=== PATIENT | male | born 1960 | race Caucasian/White ===

== ENCOUNTER 2018-04-07 12:47 | Inpatient (IN) ==
[2018-04-07] MEDS ORDERED: Azithromycin 500 MG in D5% in Water 250 ML IVPB ONE (12:52)
[2018-04-07] MEDS ORDERED: cefTRIAXone 2,000 MG in Water for inj. (sterile) 20 ML 10 ML IVP ONE (12:52)
[2018-04-07] MEDS ORDERED: Ipratropium/Albuterol Neb 3 ML IH ONE (12:52)
[2018-04-07] MEDS ORDERED: methylPREDNISolone 125 MG/2 ML VIAL IVP ONE (12:52)
[2018-04-07] MEDS ORDERED: 0.9 % Sodium Chloride 1,000 ML IVC ONE (12:52)
--- NOTE | 2018-04-07 12:54 | Emergency Department Note ---
Disposition Clinical Impression: Acute exacerbation of chronic obstructive airways disease Pneumonia Qualifiers: Pneumonia type: due to unspecified organism Laterality: bilateral Lung location : lower lobe of lung Qualified Code(s): J18.1 - Lobar pneumonia, unspecified organism Disposition: Admitted As Inpatient Condition: Fair Referrals: NONE,PCP [Non-Partnered Physician] - Forms: ED Satisfaction Letter Time of Disposition: 13:50 SOB HPI - General Chief Complaint: ED Shortness of Breath/Dyspnea Stated Complaint: SHORTNESS OF BREATH Time Seen by Provider: 04/07/18 12:52 Source: patient Mode of arrival: private vehicle Limitations: physical limitation Nursing Notes Reviewed: Yes Vital Signs Reviewed: Yes - History of Present Illness Patient relates he has had increased cough with shortness of breath over a week. He states he is coughing up [place], green to yellow phlegm. He went to work on Wednesday and upon getting home he has been in bed other to take care of activities of daily living. He is increased shortness of breath and dyspnea on exertion. He states he used to be on some Advair is currently not on oxygen or any other aerosol or inhaler. He is continued to be a smoker. He has a history of COPD. Reports fevers, chills and sweats with this. He has had chest pain with a cough for a deep breath. He denies radiating pain to his jaw , back or arms. He states he was exposed to some others at work with upper respiratory infection. She denies any lower extremity swelling, immobilization or injury. Denies abdominal pain, nausea or vomiting. Denies diarrhea. He states he is on no current medications at all and has no allergies. He arrives with initial saturation of 82% upon arriving in triage and this went to 87% at rest. He is saturating 92% on 2 L. Pt Subjective Complaint: shortness of breath, cough, pain with inspiration (And cough) Onset (ago): week(s) (1) Context: recent illness Severity: moderate, severe Consistency/Duration: gradually worsening Improves with: rest Worsens with: exertion, coughing Known history of: COPD ("Probably") Associated symptoms: Reports: chest pain (With cough), pain with inspiration, fever, cough, wheezing, sputum production, diaphoresis. Denies: orthopnea, lower extremity pain, polyuria, polydipsia, parasthesias, palpitations, hemoptysis, nausea/vomiting, syncope, abdominal pain, rash Treatment prior to arrival: none Cough present: Yes Cough Description: Voluntary, Productive, Hacking, Wheezy Cough Frequency: Intermittent Sputum production: Yes Sputum Amount: Moderate Sputum Color: Yellow, Green, Brown - Related Data Home oxygen amount: none Allergies Allergy/AdvReac Type Severity Reaction Status Date / Time No Known Allergies Allergy Verified 06/20/16 16:26 All systems ED: reviewed and negative except as stated. Past Medical History - Past Medical History Attestation: Yes The following information was validated with the patient. Source: patient, nursing notes reviewed Medical history: Reports: arthritis, COPD, other (Chronic low back pain) Surgical history: Reports: orthopedic, other (Left knee, left ankle, jaw, sinus and left arm), sinus surgery Psychiatric history: Reports: no psych history - Social History Smoking Status: Current every day smoker Smokeless Tobacco Status: No Alcohol use: Reports: none Drug use: Reports: none Physical Exam - General Limitations: physical limitation General appearance: alert, in no apparent distress - Head Head exam: atraumatic, normocephalic, normal inspection - Eye Eye exam: Present: normal appearance, PERRL, EOMI. Absent: scleral icterus, conjunctival injection - ENT ENT exam: normal exam, normal oropharynx, mucous membranes moist - Neck Neck exam: Present: normal inspection, full ROM, trachea midline - Chest Chest inspection: Present: normal inspection, symmetric chest wall rise. Absent : tenderness - Respiratory Respiratory exam: Present: respiratory distress, wheezes, prolonged expiratory phase, other (Rhonchorous breath sounds and rhonchorous cough.) - Cardiovascular Cardiovascular exam: Present: regular rate, normal rhythm, normal heart sounds. Absent: tachycardia - Abdominal Exam Abdominal exam: Present: soft, Non-Tender, normal bowel sounds. Absent: tenderness, distention, guarding, rebound, rigidity - Extremities Exam Extremities exam: Present: normal inspection, full ROM, normal capillary refill. Absent: tenderness, pedal edema, calf tenderness - Expanded Lower Extremity Exam Neurovascular/Tendon exam: Present: normal capillary refill. Absent: motor deficit, sensory deficit, tendon deficit Gait: observed and normal - Neurological Exam Neurological exam: Present: alert, oriented X3, CN II-XII intact, normal gait - Psychiatric Psychiatric exam: Present: normal affect, anxious - Skin Skin exam: Present: warm, dry, intact, pallor. Absent: cyanosis, diaphoresis Course Course Narrative: With return of all lab, EKG and imaging, call has been placed to Dr. Abernathy for continued inpatient observation. Patient is resting more comfortably with a heart rate of 90, saturation 99% on 2 L and a respiratory rate of 18. His current blood pressures 107/78. His white count is significant elevated and his lactic acid is negative. He still has some expiratory wheezing and a rhonchorous cough but has good air exchange. He has a regular rhythm without tachycardia. Has good capillary refill, peripheral pulses and normal skin exam with good color and turgor. Vital Signs Temperature 99.0 F 04/07/18 12:47 Pulse Rate 79 04/07/18 12:47 Respiratory Rate 16 04/07/18 12:47 Blood Pressure 131/86 04/07/18 12:47 O2 Sat by Pulse Oximetry 83 04/07/18 12:47 Temperature 99.0 F 04/07/18 12:47 Pulse Rate 92 04/07/18 14:23 Respiratory Rate 16 04/07/18 14:23 Blood Pressure 110/66 04/07/18 14:23 O2 Sat by Pulse Oximetry 97 04/07/18 14:23 Oxygen Delivery Oxygen Delivery Nasal Cannula Shortness of Breath/Dyspnea - Differential Diagnosis Likely: acute exacerbation of chronic obstructive airways disease, pneumonia - Medical Records Medical records reviewed: Yes I reviewed the patient's medical records. - Lab Data Lab results reviewed: Yes I reviewed the patient's lab results. Result diagrams: 04/07/18 13:10 04/07/18 13:10 Lab Results 04/07/18 04/07/18 04/07/18 Range/Units 13:10 13:10 13:10 WBC 25.6 H (4.3-11.1) K/mcL RBC 3.94 L (4.19-5.50) M/mcL Hgb 11.5 L (12.9-16.9) g/dL Hct 34.2 L (37.5-50.1) % MCV 86.8 (83.0-100.0) fL MCH 29.2 (28.0-33.3) pg MCHC 33.6 (31.6-35.5) g/dL RDW 15.9 H (11.5-14.5) % Plt Count 406 H (140-400) K/mcL MPV 9.2 L (9.4-12.4) fL PT (9.4-12.1) Seconds INR APTT (26.0-36.0) Seconds Sodium 134 L (136-145) mEq/L Potassium 4.6 (3.5-5.1) mEq/L Chloride 97 L (98-107) mEq/L Carbon Dioxide 30 H (23-29) mEq/L BUN 10 (6-20) mg/dL Creatinine 0.61 L (0.70-1.30) mg/dL Est GFR ( Amer) > 60 (> 60) Est GFR (Non-Af Amer) > 60 (> 60) BUN/Creatinine Ratio 16 (6-26) Glucose 99 (70-105) mg/dL Calculated Osmolality 277 L (280-300) Lactic Acid 1.1 (0.5-2.2) mmol/L Calcium 8.7 (8.6-10.3) mg/dL Total Bilirubin 0.3 (0.3-1.0) mg/dL Direct Bilirubin 0.1 (0.0-0.2) mg/dL Indirect Bilirubin 0.2 (0.0-1.2) mg/dL AST 20 (13-39) Units/L ALT 12 (7-52) Units/L Alkaline Phosphatase 152 H (34-104) Units/L Troponin I 0.04 H* (< 0.04) ng/mL B-Natriuretic Peptide (Less than 100) pg/mL Serum Total Protein 7.3 (6.4-8.9) g/dL Albumin 2.7 L (3.5-5.7) g/dL Globulin 4.6 H (2.4-3.5) g/dL Albumin/Globulin Ratio 0.6 L (1.1-2.2) 04/07/18 04/07/18 Range/Units 13:10 13:10 WBC (4.3-11.1) K/mcL RBC (4.19-5.50) M/mcL Hgb (12.9-16.9) g/dL Hct (37.5-50.1) % MCV (83.0-100.0) fL MCH (28.0-33.3) pg MCHC (31.6-35.5) g/dL RDW (11.5-14.5) % Plt Count (140-400) K/mcL MPV (9.4-12.4) fL PT 12.1 (9.4-12.1) Seconds INR 1.1 APTT 32.6 (26.0-36.0) Seconds Sodium (136-145) mEq/L Potassium (3.5-5.1) mEq/L Chloride (98-107) mEq/L Carbon Dioxide (23-29) mEq/L BUN (6-20) mg/dL Creatinine (0.70-1.30) mg/dL Est GFR ( Amer) (> 60) Est GFR (Non-Af Amer) (> 60) BUN/Creatinine Ratio (6-26) Glucose (70-105) mg/dL Calculated Osmolality (280-300) Lactic Acid (0.5-2.2) mmol/L Calcium (8.6-10.3) mg/dL Total Bilirubin (0.3-1.0) mg/dL Direct Bilirubin (0.0-0.2) mg/dL Indirect Bilirubin (0.0-1.2) mg/dL AST (13-39) Units/L ALT (7-52) Units/L Alkaline Phosphatase (34-104) Units/L Troponin I (< 0.04) ng/mL B-Natriuretic Peptide 67 (Less than 100) pg/mL Serum Total Protein (6.4-8.9) g/dL Albumin (3.5-5.7) g/dL Globulin (2.4-3.5) g/dL Albumin/Globulin Ratio (1.1-2.2) - Radiology Data Radiology results reviewed: Yes I reviewed the patient's radiology results. Single view chest x-rays performed. This demonstrates hyperexpansion consistent with emphysema and COPD. Patient has a dense pleural base mass in the left costophrenic angle consistent with lung cancer or infiltrate. Does answer effusion, pneumothorax or cardiomegaly. This is on my interpretation. Impressions Chest X-Ray 04/07/18 12:52 IMPRESSION: COPD with bibasilar interstitial infiltrates, with consolidative changes seen in the left lung base consistent with pneumonia. There may be a small left pleural effusion. D/ / Ronald Larry MD / Ronald Larry MD Interpreting Provider: Ronald Larry MD - EKG Data EKG attestation: Yes I reviewed and interpreted this EKG. EKG shows normal: Reports: sinus rhythm, axis, intervals, QRS complexes, ST-T waves Rate: Reports: normal (72) Interpretation: Reports: no acute changes, normal EKG
[2018-04-07 13:27] LABS: Hematocrit 34.2 % (37.5-50.1); Hemoglobin 11.5 g/dL (12.9-16.9); Mean Corpuscular HGB Conc 33.6 g/dL (31.6-35.5); Mean Corpuscular Hemoglobin 29.2 pg (28.0-33.3); Mean Corpuscular Volume 86.8 fL (83.0-100.0); Mean Platelet Volume 9.2 fL (9.4-12.4); Platelet Count 406 K/mcL (140-400); Red Blood Count 3.94 M/mcL (4.19-5.50); Red Cell Distribution Width 15.9 % (11.5-14.5)
[2018-04-07 13:34] LABS: INR 1.1; Prothrombin Time 12.1 Seconds (9.4-12.1)
[2018-04-07 13:37] LABS: Activated Partial Thrombo Time 32.6 Seconds (26.0-36.0)
[2018-04-07 13:43] LABS: Alanine Aminotransferase 12 Units/L (7-52); Albumin 2.7 g/dL (3.5-5.7); Albumin/Globulin Ratio 0.6 (1.1-2.2); Alkaline Phosphatase 152 Units/L (34-104); Aspartate Amino Transferase 20 Units/L (13-39); BUN/Creatinine Ratio 16 (6-26); Bilirubin,Direct 0.1 mg/dL (0.0-0.2); Bilirubin,Indirect 0.2 mg/dL (0.0-1.2); Bilirubin,Total 0.3 mg/dL (0.3-1.0); Blood Urea Nitrogen 10 mg/dL (6-20); Calcium 8.7 mg/dL (8.6-10.3); Carbon Dioxide 30 mEq/L (23-29); Chloride 97 mEq/L (98-107); Globulin 4.6 g/dL (2.4-3.5); Glucose 99 mg/dL (70-105); Osmolality,Calculated 277 (280-300); Potassium 4.6 mEq/L (3.5-5.1); Sodium 134 mEq/L (136-145); Total Protein 7.3 g/dL (6.4-8.9); eGFR For Non-African Americans > 60 (> 60)
[2018-04-07 14:17] LABS: Troponin I 0.04 ng/mL (< 0.04)
[2018-04-07 14:25] LABS: Lymphocytes # 1.5 K/mcL (0.6-4.6)
[2018-04-07] MEDS ORDERED: *HR* HYDROcodone/Acet 5/325 mg TABLET PO ONE ×2 (14:48→15:08)
[2018-04-07] MEDS ORDERED: Ketorolac 30 MG/ML VIAL IVP ONE ×2 (14:48→15:08)
[2018-04-07] MEDS ORDERED: Naloxone 0.4 MG/ML INJ IVP PRN (15:08)
[2018-04-07] MEDS: *HR* HYDROcodone/Acet 5/325 mg TABLET PO PRN ×2 (15:48→23:32)
[2018-04-07] MEDS: predniSONE 20 MG TABLET PO SCH (15:48)
[2018-04-07] MEDS: 0.9 % Sodium Chloride 1,000 ML IVC SCH ×2 (15:50→23:30)
[2018-04-07] MEDS ORDERED: Ipratropium/Albuterol Neb 3 ML IH SCH (16:00)
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
[2018-04-07] MEDS: Ibuprofen 600 MG TABLET PO SCH ×2 (17:17→21:00)
[2018-04-07] MEDS: Nicotine 21 MG PATCH.TD24 TD SCH (17:47)
[2018-04-07] MEDS: Lactobacillus 1 EACH CAP.SPRINK PO SCH (20:52)
[2018-04-07] MEDS: Albuterol 2.5 MG/3 ML NEBULIZER IH PRN (23:50)
[2018-04-08] MEDS: *HR* HYDROcodone/Acet 5/325 mg TABLET PO PRN ×3 (05:20→17:47)
[2018-04-08 05:31] LABS: Hematocrit 30.7 % (37.5-50.1); Hemoglobin 10.4 g/dL (12.9-16.9); Mean Corpuscular HGB Conc 33.9 g/dL (31.6-35.5); Mean Corpuscular Hemoglobin 29.3 pg (28.0-33.3); Mean Corpuscular Volume 86.5 fL (83.0-100.0); Mean Platelet Volume 9.5 fL (9.4-12.4); Platelet Count 424 K/mcL (140-400); Red Blood Count 3.55 M/mcL (4.19-5.50); Red Cell Distribution Width 15.7 % (11.5-14.5)
[2018-04-08] MEDS: Albuterol 2.5 MG/3 ML NEBULIZER IH PRN ×5 (05:32→21:09)
[2018-04-08 05:58] LABS: BUN/Creatinine Ratio 26 (6-26); Blood Urea Nitrogen 15 mg/dL (6-20); Carbon Dioxide 26 mEq/L (23-29); Chloride 102 mEq/L (98-107); Glucose 124 mg/dL (70-105); Osmolality,Calculated 282 (280-300); Potassium 4.6 mEq/L (3.5-5.1); Sodium 135 mEq/L (136-145); eGFR For Non-African Americans > 60 (> 60)
[2018-04-08 06:08] LABS: Thyroid Stimulating Hormone 0.706 mcIU/mL (0.340-5.600)
[2018-04-08] MEDS: Azithromycin 500 MG in D5% in Water 250 ML IVPB SCH (08:22)
[2018-04-08] MEDS: cefTRIAXone 2,000 MG in 0.9 % Sodium Chloride Mini Bag 100 ML IVPB SCH (08:22)
[2018-04-08] MEDS: Nicotine 21 MG PATCH.TD24 TD SCH (08:22)
[2018-04-08] MEDS: Ibuprofen 600 MG TABLET PO SCH ×3 (08:23→21:53)
[2018-04-08] MEDS: predniSONE 20 MG TABLET PO SCH (08:23)
[2018-04-08] MEDS: Lactobacillus 1 EACH CAP.SPRINK PO SCH ×2 (08:23→21:52)
[2018-04-08 09:08] LABS: % Iron Saturation 13 % (20-55); Iron 29 mcg/dL (65-175); Transferrin 155 mg/dL (203-362)
[2018-04-08 09:11] LABS: Ferritin 68 ng/mL (20-250)
[2018-04-08 09:17] LABS: Folate 6.3 ng/mL (3.0-16.0)
--- NOTE | 2018-04-08 10:29 | Internal Med Progress Note ---
Date of Encounter: 04/08/18 Time of Encounter: 10:20 - Assessment and plan (1) Pneumonia Current Visit: Yes Status: Acute Assessment and plan: April 08. WBC minimally changed. Continue Rocephin and Zithromax with lactobacillus and add IV clindamycin. Qualifiers: Pneumonia type: due to unspecified organism Laterality: bilateral Lung location: lower lobe of lung Qualified Code(s): J18.1 - Lobar pneumonia, unspecified organism (2) Acute exacerbation of chronic obstructive airways disease Current Visit: Yes Status: Acute Assessment and plan: April 08. Continue present regimen. (3) Anemia Current Visit: Yes Status: Acute Assessment and plan: April 08. Anemia testing showed iron 29, transferrin saturation 13%, transferrin 155, ferritin 68, B12 563, and folate 6.3. Start ferrous sulfate with vitamin C in a.m. Qualifiers: Anemia type: unspecified type Qualified Code(s): D64.9 - Anemia, unspecified (4) Rib pain Current Visit: Yes Status: Acute Assessment and plan: Continue scheduled Tylenol. Add scheduled Ultram and continue [place] prn (5) Insomnia Current Visit: Yes Status: Acute Assessment and plan: Schedule trazodone. Qualifiers: Insomnia type: unspecified Qualified Code(s): G47.00 - Insomnia, unspecified - Subjective Interval history: April 08. He has no new complaints. He states he still coughing with yellow sputum productive occasionally. He still has soreness in his chest and abdomen from the frequent coughing. - Constitutional Vitals: Temp Pulse Resp BP Pulse Ox 97.8 F 84 14 105/73 94 04/08/18 06:54 04/08/18 06:54 04/08/18 06:54 04/08/18 06:54 04/08/18 06:54 Exam: He is lying in bed and appears overall comfortable. He did not cough during my visit. His affect is cheerful. He does not appear significantly dyspneic at rest. I reviewed his medications, lab results, and chest CT. Internal Medicine: Result - Labs CBC & Chem 7: 04/08/18 04:47 04/08/18 04:47 Labs: Short CBC 04/08/18 Range/Units 04:47 WBC 26.1 H (4.3-11.1) K/mcL Hgb 10.4 L (12.9-16.9) g/dL Hct 30.7 L (37.5-50.1) % Plt Count 424 H (140-400) K/mcL BMP 04/08/18 04:47 Sodium 135 L Potassium 4.6 Chloride 102 Carbon Dioxide 26 BUN 15 Creatinine 0.57 L Glucose 124 H Calcium 8.0 L Cardiac Enzymes 04/07/18 Range/Units 16:58 Troponin I 0.04 H* (< 0.04) ng/mL - ABG Interpretation ABG results: PT/INR, D-dimer PT 12.1 Seconds (9.4-12.1) 04/07/18 13:10 - Impressions Impressions Chest CT 04/07/18 17:26 IMPRESSION: 1. Consolidative infiltrates seen in the left lower lobe consistent with pneumonia. 2. Diffuse bronchiectatic changes worse in the lower lobes. 3. Ill-defined nodules/infiltrate some of which have cavitary components in the right upper lobe as described. Diffuse nodularity seen in the right lower lobe. It is felt that these changes are likely related to infection rather than neoplasm. No evidence of pleural disease. 4. Multiple compression injuries worse at T7 with severe compression of unknown acuity. No evidence of retropulsion. D/ / 04/07/2018 18:12:06 Migdalia Bourgeois MD / magan Interpreting Provider: Migdalia Bourgeois MD Consult Discharge Plan - Plan Referrals: Ronald Maldonado MD [Primary Care Provider] - 1 week
[2018-04-08] MEDS: Clindamycin 600 MG/50 ML 600 MG/50 ML IV.SOLN IVPB SCH ×2 (11:11→19:35)
[2018-04-08] MEDS: Benzonatate 100 MG CAPSULE PO SCH ×3 (11:20→21:53)
[2018-04-08] MEDS: traMADol 50 MG TABLET PO SCH ×2 (11:20→17:46)
[2018-04-08] MEDS: predniSONE 10 MG TABLET PO SCH ×2 (13:02→17:47)
[2018-04-08] MEDS: traZODone 50 MG TABLET PO SCH (21:53)
[2018-04-09] MEDS: Albuterol 2.5 MG/3 ML NEBULIZER IH PRN ×6 (00:17→22:44)
[2018-04-09] MEDS: traMADol 50 MG TABLET PO SCH ×4 (00:17→17:48)
[2018-04-09] MEDS: Clindamycin 600 MG/50 ML 600 MG/50 ML IV.SOLN IVPB SCH ×3 (03:12→19:37)
[2018-04-09 04:41] LABS: Basophils % 0.1 %; Hematocrit 27.4 % (37.5-50.1); Hemoglobin 9.2 g/dL (12.9-16.9); Immature Granulocytes % 2.2 % (0-4); Lymphocytes # 1.2 K/mcL (0.6-4.6); Lymphocytes % 6.8 %; Mean Corpuscular HGB Conc 33.6 g/dL (31.6-35.5); Mean Corpuscular Hemoglobin 29.1 pg (28.0-33.3); Mean Corpuscular Volume 86.7 fL (83.0-100.0); Mean Platelet Volume 8.8 fL (9.4-12.4); Monocytes # 0.7 K/mcL (0.0-1.3); Monocytes % 3.9 %; Neutrophils # 14.7 K/mcL (1.6-8.9); Platelet Count 435 K/mcL (140-400); Red Blood Count 3.16 M/mcL (4.19-5.50); Red Cell Distribution Width 15.8 % (11.5-14.5)
[2018-04-09 05:01] LABS: BUN/Creatinine Ratio 27 (6-26); Blood Urea Nitrogen 14 mg/dL (6-20); Calcium 7.8 mg/dL (8.6-10.3); Carbon Dioxide 27 mEq/L (23-29); Chloride 104 mEq/L (98-107); Glucose 105 mg/dL (70-105); Osmolality,Calculated 283 (280-300); Potassium 4.2 mEq/L (3.5-5.1); Sodium 136 mEq/L (136-145); eGFR For Non-African Americans > 60 (> 60)
[2018-04-09] MEDS: Ascorbic Acid 500 MG TABLET PO SCH (06:34)
[2018-04-09] MEDS: Ibuprofen 600 MG TABLET PO SCH ×3 (08:23→20:10)
[2018-04-09] MEDS: Lactobacillus 1 EACH CAP.SPRINK PO SCH ×2 (08:23→20:10)
[2018-04-09] MEDS: Benzonatate 100 MG CAPSULE PO SCH ×2 (08:23→14:43)
[2018-04-09] MEDS: *HR* HYDROcodone/Acet 5/325 mg TABLET PO PRN ×3 (08:24→23:03)
[2018-04-09] MEDS: cefTRIAXone 2,000 MG in 0.9 % Sodium Chloride Mini Bag 100 ML IVPB SCH (08:24)
[2018-04-09] MEDS: predniSONE 10 MG TABLET PO SCH ×2 (08:24→17:48)
[2018-04-09] MEDS: Nicotine 21 MG PATCH.TD24 TD SCH (08:28)
[2018-04-09] MEDS: Azithromycin 500 MG in D5% in Water 250 ML IVPB SCH (09:15)
--- NOTE | 2018-04-09 15:19 | Internal Med Progress Note ---
Date of Encounter: 04/09/18 Time of Encounter: 15:10 - Assessment and plan (1) Pneumonia Current Visit: Yes Status: Acute Assessment and plan: April 08. WBC minimally changed. Continue Rocephin and Zithromax with lactobacillus and add IV clindamycin. April 09. WBC improved to 16.9 K. Continue Rocephin, Zithromax, clindamycin, and lactobacillus. Discontinue Tessalon. Qualifiers: Pneumonia type: due to unspecified organism Laterality: bilateral Lung location: lower lobe of lung Qualified Code(s): J18.1 - Lobar pneumonia, unspecified organism (2) Acute exacerbation of chronic obstructive airways disease Current Visit: Yes Status: Acute Assessment and plan: April 08. Continue present regimen. (3) Anemia Current Visit: Yes Status: Acute Assessment and plan: April 08. Anemia testing showed iron 29, transferrin saturation 13%, transferrin 155, ferritin 68, B12 563, and folate 6.3. Start ferrous sulfate with vitamin C in a.m. April 09. Hemogram decreased to 9.2. Continue ferrous sulfate with vitamin C and recheck labs in a.m. Qualifiers: Anemia type: unspecified type Qualified Code(s): D64.9 - Anemia, unspecified (4) Rib pain Current Visit: Yes Status: Acute Assessment and plan: April 08. Continue scheduled Tylenol. Add scheduled Ultram and continue [place] prn (5) Insomnia Current Visit: Yes Status: Acute Assessment and plan: April 08. Schedule trazodone. Qualifiers: Insomnia type: unspecified Qualified Code(s): G47.00 - Insomnia, unspecified - Subjective Interval history: April 08. He has no new complaints. He states he still coughing with yellow sputum productive occasionally. He still has soreness in his chest and abdomen from the frequent coughing. April 09. He has no new complaints and feels slightly improved. He expressed concern he should not have his cough suppressed if he is producing significant mucus. - Constitutional Vitals: Temp Pulse Resp BP Pulse Ox 97.7 F 83 18 104/64 93 04/09/18 07:27 04/09/18 07:27 04/09/18 14:00 04/09/18 07:27 04/09/18 14:00 Exam: He is resting comfortably in bed and appears in no acute distress. His affect is bright and cheerful. He did not cough during the visit. I reviewed his medications and lab results. Internal Medicine: Result - Labs CBC & Chem 7: 04/09/18 04:35 04/09/18 04:35 Labs: Short CBC 04/09/18 Range/Units 04:35 WBC 16.9 H (4.3-11.1) K/mcL Hgb 9.2 L (12.9-16.9) g/dL Hct 27.4 L (37.5-50.1) % Plt Count 435 H (140-400) K/mcL Neutrophils # 14.7 H (1.6-8.9) K/mcL BMP 04/09/18 04:35 Sodium 136 Potassium 4.2 Chloride 104 Carbon Dioxide 27 BUN 14 Creatinine 0.52 L Glucose 105 Calcium 7.8 L - ABG Interpretation ABG results: PT/INR, D-dimer PT 12.1 Seconds (9.4-12.1) 04/07/18 13:10 Consult Discharge Plan - Plan Referrals: Ronald Maldonado MD [Primary Care Provider] - 1 week
[2018-04-09] MEDS: traZODone 50 MG TABLET PO SCH (20:10)
[2018-04-10] MEDS: traMADol 50 MG TABLET PO SCH ×4 (00:40→17:40)
[2018-04-10] MEDS: Albuterol 2.5 MG/3 ML NEBULIZER IH PRN ×5 (00:52→20:54)
[2018-04-10] MEDS: Clindamycin 600 MG/50 ML 600 MG/50 ML IV.SOLN IVPB SCH ×3 (02:40→20:16)
[2018-04-10 06:09] LABS: Basophils % 0.1 %; Hematocrit 28.4 % (37.5-50.1); Hemoglobin 9.5 g/dL (12.9-16.9); Immature Granulocytes % 1.3 % (0-4); Lymphocytes # 1.2 K/mcL (0.6-4.6); Mean Corpuscular HGB Conc 33.5 g/dL (31.6-35.5); Mean Corpuscular Hemoglobin 29.2 pg (28.0-33.3); Mean Corpuscular Volume 87.4 fL (83.0-100.0); Mean Platelet Volume 9.1 fL (9.4-12.4); Monocytes # 0.6 K/mcL (0.0-1.3); Monocytes % 4.4 %; Neutrophils # 11.5 K/mcL (1.6-8.9); Platelet Count 529 K/mcL (140-400); Red Blood Count 3.25 M/mcL (4.19-5.50); Red Cell Distribution Width 15.9 % (11.5-14.5); Segmented Neutrophils % 85.2 %
[2018-04-10] MEDS: Ascorbic Acid 500 MG TABLET PO SCH (06:31)
[2018-04-10] MEDS: predniSONE 10 MG TABLET PO SCH ×2 (08:18→17:40)
[2018-04-10] MEDS: Ibuprofen 600 MG TABLET PO SCH ×3 (08:18→20:14)
[2018-04-10] MEDS: Lactobacillus 1 EACH CAP.SPRINK PO SCH ×2 (08:18→20:15)
[2018-04-10] MEDS: Azithromycin 500 MG in D5% in Water 250 ML IVPB SCH (08:19)
[2018-04-10] MEDS: Nicotine 21 MG PATCH.TD24 TD SCH (08:19)
[2018-04-10] MEDS: *HR* HYDROcodone/Acet 5/325 mg TABLET PO PRN ×3 (08:31→21:57)
--- NOTE | 2018-04-10 09:50 | Internal Med Progress Note ---
Date of Encounter: 04/10/18 Time of Encounter: 09:40 - Assessment and plan (1) Pneumonia Current Visit: Yes Status: Acute Assessment and plan: April 08. WBC minimally changed. Continue Rocephin and Zithromax with lactobacillus and add IV clindamycin. April 09. WBC improved to 16.9 K. Continue Rocephin, Zithromax, clindamycin, and lactobacillus. Discontinue Tessalon. April 10. WBC further improved to 13.5 with slight decrease in left shift on differential. Continue present regimen. Anticipate discharge home tomorrow with oral antibiotics if stable. Qualifiers: Pneumonia type: due to unspecified organism Laterality: bilateral Lung location: lower lobe of lung Qualified Code(s): J18.1 - Lobar pneumonia, unspecified organism (2) Acute exacerbation of chronic obstructive airways disease Current Visit: Yes Status: Acute Assessment and plan: April 08. Continue present regimen. (3) Anemia Current Visit: Yes Status: Acute Assessment and plan: April 08. Anemia testing showed iron 29, transferrin saturation 13%, transferrin 155, ferritin 68, B12 563, and folate 6.3. Start ferrous sulfate with vitamin C in a.m. April 09. Hemoglobin decreased to 9.2. Continue ferrous sulfate with vitamin C and recheck labs in a.m. April 10. Hemoglobin slightly improved to 9.5. Continue ferrous sulfate with vitamin C. Qualifiers: Anemia type: unspecified type Qualified Code(s): D64.9 - Anemia, unspecified (4) Rib pain Current Visit: Yes Status: Acute Assessment and plan: April 08. Continue scheduled Tylenol. Add scheduled Ultram and continue [place] prn April 10. He did not mention rib pain today. Continue present regimen. (5) Insomnia Current Visit: Yes Status: Acute Assessment and plan: April 08. Schedule trazodone. Qualifiers: Insomnia type: unspecified Qualified Code(s): G47.00 - Insomnia, unspecified - Subjective Interval history: April 08. He has no new complaints. He states he still coughing with yellow sputum productive occasionally. He still has soreness in his chest and abdomen from the frequent coughing. April 09. He has no new complaints and feels slightly improved. He expressed concern he should not have his cough suppressed if he is producing significant mucus. April 10. He has no new complaints. - Constitutional Vitals: Temp Pulse Resp BP Pulse Ox 98.1 F 86 16 104/74 93 04/10/18 02:09 04/10/18 02:09 04/10/18 02:09 04/10/18 02:09 04/10/18 04:06 Exam: He is lying in bed resting comfortably. He did not cough during the visit. His affect is bright and cheerful. I reviewed his medications and discussed pertinent lab results with him. Internal Medicine: Result - Labs CBC & Chem 7: 04/10/18 05:35 04/09/18 04:35 Labs: Short CBC 04/10/18 Range/Units 05:35 WBC 13.5 H (4.3-11.1) K/mcL Hgb 9.5 L (12.9-16.9) g/dL Hct 28.4 L (37.5-50.1) % Plt Count 529 H (140-400) K/mcL Neutrophils # 11.5 H (1.6-8.9) K/mcL - ABG Interpretation ABG results: PT/INR, D-dimer PT 12.1 Seconds (9.4-12.1) 04/07/18 13:10 Consult Discharge Plan - Plan Referrals: Ronald Maldonado MD [Primary Care Provider] - 1 week
[2018-04-10] MEDS: cefTRIAXone 2,000 MG in 0.9 % Sodium Chloride Mini Bag 100 ML IVPB SCH (09:58)
[2018-04-10] MEDS: traZODone 50 MG TABLET PO SCH (20:14)
[2018-04-11] MEDS: traMADol 50 MG TABLET PO SCH ×5 (00:51→23:45)
[2018-04-11] MEDS: Albuterol 2.5 MG/3 ML NEBULIZER IH PRN ×6 (03:15→21:56)
[2018-04-11] MEDS: Clindamycin 600 MG/50 ML 600 MG/50 ML IV.SOLN IVPB SCH ×3 (03:30→19:57)
[2018-04-11] MEDS: *HR* HYDROcodone/Acet 5/325 mg TABLET PO PRN ×3 (04:04→16:34)
[2018-04-11 05:18] LABS: Basophils % 0.2 %; Eosinophils % 0.1 %; Hematocrit 30.6 % (37.5-50.1); Hemoglobin 10.2 g/dL (12.9-16.9); Immature Granulocytes % 1.5 % (0-4); Lymphocytes # 1.3 K/mcL (0.6-4.6); Lymphocytes % 9.6 %; Mean Corpuscular HGB Conc 33.3 g/dL (31.6-35.5); Mean Corpuscular Hemoglobin 29.1 pg (28.0-33.3); Mean Corpuscular Volume 87.2 fL (83.0-100.0); Mean Platelet Volume 8.9 fL (9.4-12.4); Monocytes # 0.8 K/mcL (0.0-1.3); Monocytes % 5.7 %; Neutrophils # 10.9 K/mcL (1.6-8.9); Platelet Count 602 K/mcL (140-400); Red Blood Count 3.51 M/mcL (4.19-5.50); Red Cell Distribution Width 15.9 % (11.5-14.5); Segmented Neutrophils % 82.9 %
[2018-04-11] MEDS: Ascorbic Acid 500 MG TABLET PO SCH (06:19)
[2018-04-11] MEDS: Ibuprofen 600 MG TABLET PO SCH ×3 (09:36→19:56)
[2018-04-11] MEDS: predniSONE 10 MG TABLET PO SCH ×2 (09:36→16:34)
[2018-04-11] MEDS: Lactobacillus 1 EACH CAP.SPRINK PO SCH ×2 (09:36→19:56)
[2018-04-11] MEDS: cefTRIAXone 2,000 MG in 0.9 % Sodium Chloride Mini Bag 100 ML IVPB SCH (09:37)
[2018-04-11] MEDS: Azithromycin 500 MG in D5% in Water 250 ML IVPB SCH (09:37)
[2018-04-11] MEDS: Nicotine 21 MG PATCH.TD24 TD SCH (09:46)
--- NOTE | 2018-04-11 14:41 | Internal Med Progress Note ---
Date of Encounter: 04/11/18 Time of Encounter: 14:35 - Assessment and plan (1) Pneumonia Current Visit: Yes Status: Acute Assessment and plan: April 08. WBC minimally changed. Continue Rocephin and Zithromax with lactobacillus and add IV clindamycin. April 09. WBC improved to 16.9 K. Continue Rocephin, Zithromax, clindamycin, and lactobacillus. Discontinue Tessalon. April 10. WBC further improved to 13.5 with slight decrease in left shift on differential. Continue present regimen. Anticipate discharge home tomorrow with oral antibiotics if stable. April 11. WBC minimally improved at 13.1 K with persistent left shift. Continue IV antibiotics today and anticipate discharge home tomorrow Qualifiers: Pneumonia type: due to unspecified organism Laterality: bilateral Lung location: lower lobe of lung Qualified Code(s): J18.1 - Lobar pneumonia, unspecified organism (2) Acute exacerbation of chronic obstructive airways disease Current Visit: Yes Status: Acute Assessment and plan: April 08. Continue present regimen. April 11. Recheck 6 minute walk in a.m. (3) Anemia Current Visit: Yes Status: Acute Assessment and plan: April 08. Anemia testing showed iron 29, transferrin saturation 13%, transferrin 155, ferritin 68, B12 563, and folate 6.3. Start ferrous sulfate with vitamin C in a.m. April 09. Hemoglobin decreased to 9.2. Continue ferrous sulfate with vitamin C and recheck labs in a.m. April 10. Hemoglobin slightly improved to 9.5. Continue ferrous sulfate with vitamin C. April 11. Hemoglobin improved to 10.2. Qualifiers: Anemia type: unspecified type Qualified Code(s): D64.9 - Anemia, unspecified (4) Rib pain Current Visit: Yes Status: Acute Assessment and plan: April 08. Continue scheduled Tylenol. Add scheduled Ultram and continue [place] prn April 10. He did not mention rib pain today. Continue present regimen. (5) Insomnia Current Visit: Yes Status: Acute Assessment and plan: April 08. Schedule trazodone. Qualifiers: Insomnia type: unspecified Qualified Code(s): G47.00 - Insomnia, unspecified - Subjective Interval history: April 08. He has no new complaints. He states he still coughing with yellow sputum productive occasionally. He still has soreness in his chest and abdomen from the frequent coughing. April 09. He has no new complaints and feels slightly improved. He expressed concern he should not have his cough suppressed if he is producing significant mucus. April 10. He has no new complaints. April 11. He has no new complaints. - Constitutional Vitals: Temp Pulse Resp BP Pulse Ox 97.8 F 81 17 123/71 95 04/11/18 14:00 04/11/18 14:00 04/11/18 14:00 04/11/18 14:00 04/11/18 14:00 Exam: He is resting comfortably in bed wearing oxygen. His affect is cheerful. I reviewed his medications and lab results. I discussed the results of the 6 minute walk done today showing saturation decreasing to 85% within 1 minute of initiating walking. Internal Medicine: Result - Labs CBC & Chem 7: 04/11/18 04:43 04/09/18 04:35 Labs: Short CBC 04/11/18 Range/Units 04:43 WBC 13.1 H (4.3-11.1) K/mcL Hgb 10.2 L (12.9-16.9) g/dL Hct 30.6 L (37.5-50.1) % Plt Count 602 H (140-400) K/mcL Neutrophils # 10.9 H (1.6-8.9) K/mcL - ABG Interpretation ABG results: PT/INR, D-dimer PT 12.1 Seconds (9.4-12.1) 04/07/18 13:10 Consult Discharge Plan - Plan Referrals: Ronald Maldonado MD [Primary Care Provider] - 1 week
--- NOTE | 2018-04-11 15:44 | Electrocardiograph Report ---
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
[2018-04-11] MEDS: traZODone 50 MG TABLET PO SCH (19:57)
[2018-04-12] MEDS: *HR* HYDROcodone/Acet 5/325 mg TABLET PO PRN ×3 (01:41→14:24)
[2018-04-12] MEDS: Albuterol 2.5 MG/3 ML NEBULIZER IH PRN ×6 (01:55→13:53)
[2018-04-12] MEDS: Clindamycin 600 MG/50 ML 600 MG/50 ML IV.SOLN IVPB SCH ×3 (04:33→12:02)
[2018-04-12] MEDS: Ascorbic Acid 500 MG TABLET PO SCH (06:05)
[2018-04-12] MEDS: traMADol 50 MG TABLET PO SCH ×2 (06:06→12:02)
[2018-04-12 06:49] LABS: Basophils % 0.2 %; Eosinophils % 0.2 %; Hematocrit 31.8 % (37.5-50.1); Hemoglobin 10.6 g/dL (12.9-16.9); Lymphocytes # 2.1 K/mcL (0.6-4.6); Lymphocytes % 16.7 %; Mean Corpuscular HGB Conc 33.3 g/dL (31.6-35.5); Mean Corpuscular Volume 86.9 fL (83.0-100.0); Mean Platelet Volume 9.2 fL (9.4-12.4); Monocytes # 0.8 K/mcL (0.0-1.3); Platelet Count 738 K/mcL (140-400); Red Blood Count 3.66 M/mcL (4.19-5.50); Red Cell Distribution Width 16.2 % (11.5-14.5); Segmented Neutrophils % 75.9 %
[2018-04-12 07:04] VITALS: BP 105/70
[2018-04-12 07:11] LABS: Neutrophils # 9.6 K/mcL (1.6-8.9)
[2018-04-12] MEDS: cefTRIAXone 2,000 MG in 0.9 % Sodium Chloride Mini Bag 100 ML IVPB SCH (07:56)
[2018-04-12] MEDS: Ibuprofen 600 MG TABLET PO SCH ×2 (07:57→14:23)
[2018-04-12] MEDS: predniSONE 10 MG TABLET PO SCH (07:57)
[2018-04-12] MEDS: Lactobacillus 1 EACH CAP.SPRINK PO SCH (07:57)
[2018-04-12] MEDS: Nicotine 21 MG PATCH.TD24 TD SCH (07:58)
[2018-04-12] MEDS: Azithromycin 500 MG in D5% in Water 250 ML IVPB SCH (07:58)
--- NOTE | 2018-04-12 10:45 | Discharge Summary ---
Date of Encounter: 04/12/18 Time of Encounter: 10:25 - Discharge Diagnosis (1) Pneumonia Priority: Primary Status: Acute Qualifiers: Pneumonia type: due to unspecified organism Laterality: bilateral Lung location: lower lobe of lung Qualified Code(s): J18.1 - Lobar pneumonia, unspecified organism (2) Acute exacerbation of chronic obstructive airways disease Priority: Secondary Status: Acute (3) Anemia Priority: Secondary Status: Acute Qualifiers: Anemia type: unspecified type Qualified Code(s): D64.9 - Anemia, unspecified (4) Rib pain Priority: Secondary Status: Acute (5) Insomnia Priority: Secondary Status: Acute Qualifiers: Insomnia type: unspecified Qualified Code(s): G47.00 - Insomnia, unspecified Hospital course: Mr. Hartman is a 57 year old male who came to emergency room stating he had onset of dyspnea and cough approximately one week ago. The cough was minimally productive of white phlegm. He denies hemoptysis. He had occasional sensation of fevers and chills. He had a single episode of vomiting and diarrhea. He stated he was too weak to get out of bed for the past 2 days so decided to come to emergency room. He was evaluated and was felt to have bibasal pneumonia. He was admitted to [facility] for ongoing care needs. Initial orders were written by the emergency room physician. I saw him on April 07 and performed a history and physical. He was started empirically on Rocephin and Zithromax. Chest CT was ordered to further evaluate. There were consolidative infiltrates in the left lower lobe consistent with pneumonia. He had diffuse bronchiectatic changes worse in the lower lobes. He had ill- defined nodule/infiltrate with cavitary components in the right upper lobe and diffuse nodularity in the right lower lobe. Radiologist felt the changes were likely due to infection rather than neoplasm. He had multiple compression fracture injuries with the worst at T7 with severe compression of unknown acuity. The WBC deanna slightly to 26.1 on April 08 and IV clindamycin was added. He had progressive decline of WBC down to 12.7 by day of discharge with resolution of left shift. He will continue with antibiotic and probiotic for 5 additional days at discharge. I strongly encouraged him to become a nonsmoker. Room air oximetry will be done on 6 minute walk prior to discharge. He will receive a 3 day supply of tramadol for abdominal/chest wall pain from coughing. Anemia testing showed iron 29, transferrin saturation 13%, transferrin 155, ferritin 68, B12 563, and folate 6.3. He will continue ferrous sulfate and vitamin C that was started in the hospital. Hemoglobin had improved to 10.6 by day of discharge from 9.2 on 04/09/2018. He will follow with his PCP Dr. Maldonado within 1 week. He may return to work . - Time Spent with Patient Total time spent providing and/or coordinating discharge services: - Discharge Medications Prescriptions: Cefuroxime PO [Ceftin] 500 mg PO Q12HR #10 tablet Ascorbic Acid [Vitamin C] 500 mg PO DAILY@0630 #30 tablet Clindamycin HCl 300 mg PO Q6H #20 capsule Ferrous Sulfate 325 mg PO DAILY@0630 #30 tablet Lactobacillus [Culturelle] 1 each PO BID #10 cap.sprink Tramadol HCl [Ultram] 50 mg PO QID PRN 3 Days #12 tab PRN Reason: Pain Home Medications: Ascorbic Acid [Vitamin C] 500 mg PO DAILY@0630 #30 tablet 04/12/18 [Rx] Cefuroxime PO [Ceftin] 500 mg PO Q12HR #10 tablet 04/12/18 [Rx] Clindamycin HCl 300 mg PO Q6H #20 capsule 04/12/18 [Rx] Ferrous Sulfate 325 mg PO DAILY@0630 #30 tablet 04/12/18 [Rx] Lactobacillus [Culturelle] 1 each PO BID #10 cap.sprink 04/12/18 [Rx] Tramadol HCl [Ultram] 50 mg PO QID PRN 3 Days #12 tab 04/12/18 [Rx] Allergies/Adverse Reactions: 3 Allergy/AdvReac Type Severity Reaction Status Date / Time No Known Allergies Allergy Verified 06/20/16 16:26 Date of admission: 04/08/18 14:53 Primary care physician: Ronald Maldonado MD - Constitutional Vitals: Temp Pulse Resp BP Pulse Ox 98.5 F 103 16 105/70 94 04/12/18 07:02 04/12/18 07:02 04/12/18 07:02 04/12/18 07:02 04/12/18 10:02 - Patient Status Disposition: Home, Self-Care Condition: Fair - Discharge Instructions Follow Up With: Ronald Maldonado MD [Primary Care Provider] - 1 week - Diet and Activity Activity: resume usual activities as tolerated Diet: advance to your usual diet
== END 2018-04-12 15:19 | disposition home or self-care (01) | DRG 194 ==
LOC: EMEROOPIK 12:47 → INPPIK 12:47
PROVIDERS: ADMIT Internal Medicine; ATTEND Internal Medicine

== ENCOUNTER 2021-12-08 12:31 | Inpatient (IN) ==
[2021-12-08] MEDS ORDERED: cefTRIAXone 2,000 MG in 0.9 % Sodium Chloride 10 ML IVP ONE (12:45)
[2021-12-08] MEDS ORDERED: Ipratropium/Albuterol Neb 3 ML IH ONE (12:45)
[2021-12-08] MEDS ORDERED: Azithromycin 500 MG in 0.9 % Sodium Chloride 250 ML IVPB ONE (12:45)
[2021-12-08] MEDS ORDERED: methylPREDNISolone 125 MG/2 ML VIAL IVP ONE (12:45)
[2021-12-08] MEDS ORDERED: 0.9 % Sodium Chloride 500 ML IVC ONE (12:46)
[2021-12-08] MEDS ORDERED: 0.9 % Sodium Chloride 1,000 ML IVC SCH (13:00)
[2021-12-08 13:08] LABS: Basophils % 0.2 %; Hematocrit 41.4 % (37.5-50.1); Hemoglobin 13.2 g/dL (12.9-16.9); Immature Granulocytes % 1.1 % (0-4); Lymphocytes % 4.8 %; Mean Corpuscular HGB Conc 31.9 g/dL (31.6-35.5); Mean Corpuscular Hemoglobin 27.6 pg (28.0-33.3); Mean Corpuscular Volume 86.6 fL (83.0-100.0); Mean Platelet Volume 9.2 fL (9.4-12.4); Monocytes % 3.2 %; Platelet Count 537 K/mcL (140-400); Red Blood Count 4.78 M/mcL (4.19-5.50); Red Cell Distribution Width 14.8 % (11.5-14.5); Segmented Neutrophils % 90.7 %; White Blood Count 20.2 K/mcL (4.3-11.1)
[2021-12-08 13:09] LABS: Monocytes # 0.7 K/mcL (0.0-1.3); Neutrophils # 18.3 K/mcL (1.6-8.9)
[2021-12-08 13:24] LABS: ABG Base Excess 3 mEq/L (-2 to 3); ABG HCO3 29 mEq/L (21-27); ABG Oxygen Saturation 94 % (95-98); ABG PCO2 47 mmHg (35-45); ABG PO2 72 mmHg (85-104); ABG TCO2 30 mEq/L (20-26)
[2021-12-08 13:32] LABS: Alanine Aminotransferase 8 Units/L (7-52); Albumin 3.5 g/dL (3.5-5.7); Albumin/Globulin Ratio 0.9 (1.1-2.2); Alkaline Phosphatase 115 Units/L (34-104); Aspartate Amino Transferase 16 Units/L (13-39); BUN/Creatinine Ratio 12 (6-26); Bilirubin,Direct 0.1 mg/dL (0.0-0.2); Bilirubin,Indirect 0.3 mg/dL (0.0-1.0); Bilirubin,Total 0.4 mg/dL (0.3-1.0); Blood Urea Nitrogen 8 mg/dL (8-23); Calcium 9.3 mg/dL (8.6-10.3); Carbon Dioxide 29 mEq/L (23-29); Chloride 88 mEq/L (98-107); Glucose 112 mg/dL (70-105); Osmolality,Calculated 265 (280-300); Sodium 128 mEq/L (136-145); Total Protein 7.5 g/dL (6.4-8.9); Troponin I < 0.03 ng/mL (< 0.04); eGFR For African Americans > 60 (> 60); eGFR For Non-African Americans > 60 (> 60)
[2021-12-08] MEDS ORDERED: Iopamidol - 370 500 ML MLS IVP ONE (13:42)
[2021-12-08] MEDS ORDERED: Acetaminophen 325 MG TABLET PO PRN (14:39)
[2021-12-08] MEDS ORDERED: Ondansetron 4 MG/2 ML VIAL IVP PRN (14:39)
[2021-12-08] MEDS ORDERED: Melatonin 3 MG TABLET PO PRN (14:39)
[2021-12-08] MEDS ORDERED: Naloxone 0.4 MG/ML INJ IVP PRN (14:39)
[2021-12-08] MEDS ORDERED: Nitroglycerin 0.4 MG TAB.SUBL SL PRN (14:45)
[2021-12-08] MEDS ORDERED: Perflutren Lipid Microsphere 1.3 ML in 0.9 % Sodium Chloride 8.7 ML IVP PRN (14:50)
[2021-12-08] MEDS: *HR* HYDROcodone/Acet 10/325 mg TABLET PO PRN ×2 (15:00→21:20)
[2021-12-08] MEDS: Nicotine 21 MG PATCH.TD24 TD SCH (15:00)
[2021-12-08] MEDS: Ipratropium/Albuterol Neb 3 ML IH SCH ×2 (15:22→20:11)
[2021-12-08] MEDS: Nystatin SUSP 5 ML UD.LIQ PO SCH ×2 (18:06→21:21)
[2021-12-08] MEDS: MethylPREDNISolone 40 MG/ML VIAL IVP SCH (18:06)
[2021-12-08] MEDS: Budesonide/Formoterol 160/4.5 1 PUFF INH IH SCH (20:25)
[2021-12-08 21:49] LABS: Adenovirus Not Detected (Not Detect); Bordetella Pertussis Not Detected (Not Detect); Chlamydophila pneumoniae Not Detected (Not Detect); Coronavirus 229E Not Detected (Not Detect); Coronavirus HKU1 Not Detected (Not Detect); Coronavirus NL63 Not Detected (Not Detect); Coronavirus OC43 Not Detected (Not Detect); Human Metapneumovirus Not Detected (Not Detect); Human Rhinovirus/Enterovirus Not Detected (Not Detect); Influenza A Subtype 2009 H1 Not Detected (Not Detect); Influenza B Not Detected (Not Detect); Mycoplasma pneumoniae Not Detected (Not Detect); Parainfluenza Virus 1 Not Detected (Not Detect); Parainfluenza Virus 2 Not Detected (Not Detect); Parainfluenza Virus 3 Not Detected (Not Detect); Parainfluenza Virus 4 Not Detected (Not Detect); Respiratory Syncytial Virus Not Detected (Not Detect); SARS-CoV-2 Not Detected (Not Detect)
[2021-12-09 00:20] LABS: Hematocrit 36.4 % (37.5-50.1); Hemoglobin 11.8 g/dL (12.9-16.9); Mean Corpuscular HGB Conc 32.4 g/dL (31.6-35.5); Mean Corpuscular Volume 86.3 fL (83.0-100.0); Platelet Count 508 K/mcL (140-400); Red Blood Count 4.22 M/mcL (4.19-5.50); Red Cell Distribution Width 14.9 % (11.5-14.5); White Blood Count 13.4 K/mcL (4.3-11.1)
[2021-12-09 00:32] LABS: BUN/Creatinine Ratio 19 (6-26); Blood Urea Nitrogen 13 mg/dL (8-23); Calcium 8.7 mg/dL (8.6-10.3); Carbon Dioxide 32 mEq/L (23-29); Chloride 92 mEq/L (98-107); Chol/HDL Ratio 3.6 (0-4.9); Cholesterol 100 mg/dL (< 200); Glucose 143 mg/dL (70-105); HDL Cholesterol 28 mg/dL (40-59); LDL Cholesterol,Calculated 60 mg/dL (< 100); Osmolality,Calculated 273 (280-300); Potassium 4.5 mEq/L (3.5-5.1); Sodium 130 mEq/L (136-145); Triglycerides 62 mg/dL (< 150); eGFR For African Americans > 60 (> 60); eGFR For Non-African Americans > 60 (> 60)
[2021-12-09] MEDS: MethylPREDNISolone 40 MG/ML VIAL IVP SCH ×4 (00:53→16:38)
[2021-12-09] MEDS: Ipratropium/Albuterol Neb 3 ML IH SCH ×6 (04:05→21:41)
[2021-12-09] MEDS: *HR* Enoxaparin 40 MG/0.4 ML SYRINGE SQ SCH (05:27)
[2021-12-09] MEDS: *HR* HYDROcodone/Acet 10/325 mg TABLET PO PRN ×3 (05:39→21:46)
[2021-12-09] MEDS: BuPROPion XL (24 HR) 150 MG TABLET PO SCH (08:57)
[2021-12-09] MEDS: Nicotine 21 MG PATCH.TD24 TD SCH (08:57)
[2021-12-09] MEDS: Azithromycin 250 MG TABLET PO SCH (08:57)
[2021-12-09] MEDS: cefTRIAXone 1,000 MG in 0.9 % Sodium Chloride 10 ML IVP SCH (08:57)
[2021-12-09] MEDS: Nystatin SUSP 5 ML UD.LIQ PO SCH ×4 (08:57→21:46)
[2021-12-09] MEDS: Aspirin Enteric Coated 81 MG Tablet PO SCH (08:57)
[2021-12-09] MEDS: Budesonide/Formoterol 160/4.5 1 PUFF INH IH SCH ×2 (09:34→21:40)
[2021-12-09] MEDS: Furosemide 20 MG/2 ML VIAL IVP SCH (16:39)
[2021-12-09] MEDS ORDERED: Furosemide 20 MG/2 ML VIAL IVP SCH (21:00)
[2021-12-10] MEDS: MethylPREDNISolone 40 MG/ML VIAL IVP SCH ×3 (00:09→18:07)
[2021-12-10] MEDS: Ipratropium/Albuterol Neb 3 ML IH SCH ×6 (00:55→20:23)
[2021-12-10] MEDS: *HR* HYDROcodone/Acet 10/325 mg TABLET PO PRN ×3 (04:59→18:03)
[2021-12-10] MEDS: *HR* Enoxaparin 40 MG/0.4 ML SYRINGE SQ SCH (04:59)
[2021-12-10 06:48] LABS: Hematocrit 35.2 % (37.5-50.1); Hemoglobin 11.4 g/dL (12.9-16.9); Mean Corpuscular HGB Conc 32.4 g/dL (31.6-35.5); Mean Corpuscular Hemoglobin 28.4 pg (28.0-33.3); Mean Corpuscular Volume 87.8 fL (83.0-100.0); Platelet Count 561 K/mcL (140-400); Red Blood Count 4.01 M/mcL (4.19-5.50); Red Cell Distribution Width 15.1 % (11.5-14.5); White Blood Count 20.4 K/mcL (4.3-11.1)
[2021-12-10 07:09] LABS: BUN/Creatinine Ratio 32 (6-26); Blood Urea Nitrogen 21 mg/dL (8-23); Calcium 8.7 mg/dL (8.6-10.3); Carbon Dioxide 36 mEq/L (23-29); Chloride 94 mEq/L (98-107); Glucose 136 mg/dL (70-105); Osmolality,Calculated 287 (280-300); Potassium 4.3 mEq/L (3.5-5.1); Sodium 136 mEq/L (136-145); eGFR For African Americans > 60 (> 60); eGFR For Non-African Americans > 60 (> 60)
[2021-12-10] MEDS: Azithromycin 250 MG TABLET PO SCH (08:55)
[2021-12-10] MEDS: Aspirin Enteric Coated 81 MG Tablet PO SCH (08:55)
[2021-12-10] MEDS: Nystatin SUSP 5 ML UD.LIQ PO SCH ×4 (08:55→20:19)
[2021-12-10] MEDS: Nicotine 21 MG PATCH.TD24 TD SCH (08:55)
[2021-12-10] MEDS: BuPROPion XL (24 HR) 150 MG TABLET PO SCH (08:55)
[2021-12-10] MEDS: Furosemide 20 MG/2 ML VIAL IVP SCH (08:56)
[2021-12-10] MEDS: cefTRIAXone 1,000 MG in 0.9 % Sodium Chloride 10 ML IVP SCH (08:57)
[2021-12-10] MEDS: Budesonide/Formoterol 160/4.5 1 PUFF INH IH SCH ×2 (09:06→20:23)
[2021-12-10] MEDS ORDERED: Bismuth Subsalicylate 120 ML ORAL SUSPENSION PO PRN (18:11)
[2021-12-11] MEDS: Ipratropium/Albuterol Neb 3 ML IH SCH ×6 (00:06→20:29)
[2021-12-11] MEDS: *HR* HYDROcodone/Acet 10/325 mg TABLET PO PRN ×4 (00:10→20:15)
[2021-12-11] MEDS: MethylPREDNISolone 40 MG/ML VIAL IVP SCH ×2 (04:56→17:29)
[2021-12-11] MEDS: *HR* Enoxaparin 40 MG/0.4 ML SYRINGE SQ SCH (04:57)
[2021-12-11] MEDS: Budesonide/Formoterol 160/4.5 1 PUFF INH IH SCH ×2 (07:14→20:29)
[2021-12-11] MEDS: Aspirin Enteric Coated 81 MG Tablet PO SCH (09:04)
[2021-12-11] MEDS: BuPROPion XL (24 HR) 150 MG TABLET PO SCH (09:05)
[2021-12-11] MEDS: Azithromycin 250 MG TABLET PO SCH (09:05)
[2021-12-11] MEDS: cefTRIAXone 1,000 MG in 0.9 % Sodium Chloride 10 ML IVP SCH (09:06)
[2021-12-11] MEDS: Furosemide 20 MG/2 ML VIAL IVP SCH (09:06)
[2021-12-11] MEDS: Nicotine 21 MG PATCH.TD24 TD SCH (09:08)
[2021-12-11] MEDS: Nystatin SUSP 5 ML UD.LIQ PO SCH ×4 (09:08→20:15)
[2021-12-11] MEDS: Sennosides/Docusate Sodium TABLET PO SCH (13:00)
[2021-12-12] MEDS: Ipratropium/Albuterol Neb 3 ML IH SCH ×6 (00:06→20:38)
[2021-12-12] MEDS: *HR* HYDROcodone/Acet 10/325 mg TABLET PO PRN ×4 (04:30→22:45)
[2021-12-12] MEDS: *HR* Enoxaparin 40 MG/0.4 ML SYRINGE SQ SCH (04:31)
[2021-12-12] MEDS: MethylPREDNISolone 40 MG/ML VIAL IVP SCH ×2 (04:31→17:08)
[2021-12-12 07:44] LABS: Hematocrit 34.9 % (37.5-50.1); Hemoglobin 10.9 g/dL (12.9-16.9); Mean Corpuscular HGB Conc 31.2 g/dL (31.6-35.5); Mean Corpuscular Hemoglobin 28.2 pg (28.0-33.3); Mean Corpuscular Volume 90.4 fL (83.0-100.0); Mean Platelet Volume 8.9 fL (9.4-12.4); Platelet Count 581 K/mcL (140-400); Red Blood Count 3.86 M/mcL (4.19-5.50); Red Cell Distribution Width 15.6 % (11.5-14.5); White Blood Count 10.8 K/mcL (4.3-11.1)
[2021-12-12] MEDS: Sennosides/Docusate Sodium TABLET PO SCH (07:48)
[2021-12-12] MEDS: Azithromycin 250 MG TABLET PO SCH (07:49)
[2021-12-12] MEDS: Nicotine 21 MG PATCH.TD24 TD SCH (07:50)
[2021-12-12] MEDS: Aspirin Enteric Coated 81 MG Tablet PO SCH (07:50)
[2021-12-12] MEDS: BuPROPion XL (24 HR) 150 MG TABLET PO SCH (07:50)
[2021-12-12] MEDS: cefTRIAXone 1,000 MG in 0.9 % Sodium Chloride 10 ML IVP SCH (07:50)
[2021-12-12] MEDS: Nystatin SUSP 5 ML UD.LIQ PO SCH ×4 (07:51→20:53)
[2021-12-12] MEDS: Budesonide/Formoterol 160/4.5 1 PUFF INH IH SCH ×2 (08:04→20:39)
[2021-12-12] MEDS: Furosemide 20 MG TABLET PO SCH ×2 (08:06→08:07)
[2021-12-12 08:10] LABS: BUN/Creatinine Ratio 33 (6-26); Blood Urea Nitrogen 23 mg/dL (8-23); Calcium 8.7 mg/dL (8.6-10.3); Carbon Dioxide 43 mEq/L (23-29); Chloride 87 mEq/L (98-107); Glucose 100 mg/dL (70-105); Osmolality,Calculated 278 (280-300); Potassium 4.7 mEq/L (3.5-5.1); Sodium 132 mEq/L (136-145); eGFR For African Americans > 60 (> 60); eGFR For Non-African Americans > 60 (> 60)
[2021-12-13] MEDS: Ipratropium/Albuterol Neb 3 ML IH SCH ×6 (00:27→20:38)
[2021-12-13] MEDS: *HR* HYDROcodone/Acet 10/325 mg TABLET PO PRN ×3 (05:12→18:17)
[2021-12-13] MEDS: *HR* Enoxaparin 40 MG/0.4 ML SYRINGE SQ SCH (05:12)
[2021-12-13 06:32] LABS: Hematocrit 35.4 % (37.5-50.1); Hemoglobin 11.2 g/dL (12.9-16.9); Mean Corpuscular HGB Conc 31.6 g/dL (31.6-35.5); Mean Corpuscular Hemoglobin 28.1 pg (28.0-33.3); Mean Corpuscular Volume 88.7 fL (83.0-100.0); Mean Platelet Volume 8.8 fL (9.4-12.4); Platelet Count 602 K/mcL (140-400); Red Blood Count 3.99 M/mcL (4.19-5.50); Red Cell Distribution Width 15.2 % (11.5-14.5); White Blood Count 8.8 K/mcL (4.3-11.1)
[2021-12-13 06:53] LABS: BUN/Creatinine Ratio 32 (6-26); Blood Urea Nitrogen 22 mg/dL (8-23); Calcium 8.7 mg/dL (8.6-10.3); Carbon Dioxide 42 mEq/L (23-29); Chloride 85 mEq/L (98-107); Glucose 79 mg/dL (70-105); Osmolality,Calculated 270 (280-300); Potassium 4.5 mEq/L (3.5-5.1); Sodium 129 mEq/L (136-145); eGFR For African Americans > 60 (> 60); eGFR For Non-African Americans > 60 (> 60)
[2021-12-13] MEDS: cefTRIAXone 1,000 MG in 0.9 % Sodium Chloride 10 ML IVP SCH (08:12)
[2021-12-13] MEDS: Sennosides/Docusate Sodium TABLET PO SCH (08:13)
[2021-12-13] MEDS: predniSONE 20 MG TABLET PO SCH (08:13)
[2021-12-13] MEDS: Nystatin SUSP 5 ML UD.LIQ PO SCH ×4 (08:13→19:58)
[2021-12-13] MEDS: BuPROPion XL (24 HR) 150 MG TABLET PO SCH (08:14)
[2021-12-13] MEDS: acetaZOLAMIDE 250 MG TABLET PO SCH ×2 (08:14→19:58)
[2021-12-13] MEDS: Aspirin Enteric Coated 81 MG Tablet PO SCH (08:14)
[2021-12-13] MEDS: Nicotine 21 MG PATCH.TD24 TD SCH (08:14)
[2021-12-13] MEDS: Budesonide/Formoterol 160/4.5 1 PUFF INH IH SCH ×2 (08:54→20:38)
[2021-12-14] MEDS: Ipratropium/Albuterol Neb 3 ML IH SCH ×6 (00:30→20:01)
[2021-12-14] MEDS: *HR* HYDROcodone/Acet 10/325 mg TABLET PO PRN ×4 (00:37→19:55)
[2021-12-14] MEDS: *HR* Enoxaparin 40 MG/0.4 ML SYRINGE SQ SCH (05:35)
[2021-12-14] MEDS: cefTRIAXone 1,000 MG in 0.9 % Sodium Chloride 10 ML IVP SCH (07:32)
[2021-12-14] MEDS: Sennosides/Docusate Sodium TABLET PO SCH (07:33)
[2021-12-14] MEDS: predniSONE 20 MG TABLET PO SCH (07:33)
[2021-12-14] MEDS: Aspirin Enteric Coated 81 MG Tablet PO SCH (07:33)
[2021-12-14] MEDS: acetaZOLAMIDE 250 MG TABLET PO SCH ×2 (07:34→19:54)
[2021-12-14] MEDS: Nicotine 21 MG PATCH.TD24 TD SCH (07:34)
[2021-12-14] MEDS: BuPROPion XL (24 HR) 150 MG TABLET PO SCH (07:34)
[2021-12-14] MEDS: Nystatin SUSP 5 ML UD.LIQ PO SCH ×4 (07:34→19:54)
[2021-12-14 08:03] LABS: BUN/Creatinine Ratio 27 (6-26); Blood Urea Nitrogen 20 mg/dL (8-23); Calcium 8.6 mg/dL (8.6-10.3); Carbon Dioxide 32 mEq/L (23-29); Chloride 93 mEq/L (98-107); Glucose 88 mg/dL (70-105); Osmolality,Calculated 270 (280-300); Potassium 4.3 mEq/L (3.5-5.1); Sodium 129 mEq/L (136-145); eGFR For African Americans > 60 (> 60); eGFR For Non-African Americans > 60 (> 60)
[2021-12-14] MEDS: Budesonide/Formoterol 160/4.5 1 PUFF INH IH SCH ×2 (08:47→20:02)
[2021-12-15] MEDS: Ipratropium/Albuterol Neb 3 ML IH SCH ×7 (00:02→23:14)
[2021-12-15] MEDS: *HR* HYDROcodone/Acet 10/325 mg TABLET PO PRN ×4 (02:24→22:24)
[2021-12-15] MEDS: *HR* Enoxaparin 40 MG/0.4 ML SYRINGE SQ SCH (05:04)
[2021-12-15] MEDS: Aspirin Enteric Coated 81 MG Tablet PO SCH (08:23)
[2021-12-15] MEDS: Nicotine 21 MG PATCH.TD24 TD SCH (08:23)
[2021-12-15] MEDS: BuPROPion XL (24 HR) 150 MG TABLET PO SCH (08:23)
[2021-12-15] MEDS: acetaZOLAMIDE 250 MG TABLET PO SCH ×2 (08:24→20:40)
[2021-12-15] MEDS: Sennosides/Docusate Sodium TABLET PO SCH (08:24)
[2021-12-15] MEDS: Nystatin SUSP 5 ML UD.LIQ PO SCH ×4 (08:24→20:40)
[2021-12-15] MEDS: predniSONE 20 MG TABLET PO SCH (08:24)
[2021-12-15] MEDS: Budesonide/Formoterol 160/4.5 1 PUFF INH IH SCH ×2 (08:51→23:14)
[2021-12-16] MEDS: Ipratropium/Albuterol Neb 3 ML IH SCH ×4 (03:34→15:11)
[2021-12-16] MEDS: *HR* HYDROcodone/Acet 10/325 mg TABLET PO PRN ×2 (04:53→10:59)
[2021-12-16] MEDS: *HR* Enoxaparin 40 MG/0.4 ML SYRINGE SQ SCH (04:54)
[2021-12-16 06:01] LABS: Basophils % 0.2 %; Eosinophils % 0.6 %; Hematocrit 33.2 % (37.5-50.1); Hemoglobin 10.6 g/dL (12.9-16.9); Immature Granulocytes % 0.6 % (0-4); Lymphocytes # 1.7 K/mcL (0.6-4.6); Lymphocytes % 26.8 %; Mean Corpuscular HGB Conc 31.9 g/dL (31.6-35.5); Mean Corpuscular Hemoglobin 27.8 pg (28.0-33.3); Mean Corpuscular Volume 87.1 fL (83.0-100.0); Mean Platelet Volume 8.3 fL (9.4-12.4); Monocytes # 0.5 K/mcL (0.0-1.3); Monocytes % 8.4 %; Neutrophils # 3.9 K/mcL (1.6-8.9); Platelet Count 481 K/mcL (140-400); Red Blood Count 3.81 M/mcL (4.19-5.50); Red Cell Distribution Width 15.7 % (11.5-14.5); Segmented Neutrophils % 63.4 %; White Blood Count 6.2 K/mcL (4.3-11.1)
[2021-12-16 06:22] LABS: BUN/Creatinine Ratio 30 (6-26); Blood Urea Nitrogen 22 mg/dL (8-23); Calcium 8.2 mg/dL (8.6-10.3); Carbon Dioxide 27 mEq/L (23-29); Chloride 98 mEq/L (98-107); Glucose 76 mg/dL (70-105); Osmolality,Calculated 278 (280-300); Potassium 3.7 mEq/L (3.5-5.1); Sodium 133 mEq/L (136-145); eGFR For African Americans > 60 (> 60); eGFR For Non-African Americans > 60 (> 60)
[2021-12-16 07:35] VITALS: BP 113/75; PULSE 70; TEMP 97.7
[2021-12-16] MEDS: Budesonide/Formoterol 160/4.5 1 PUFF INH IH SCH (09:23)
[2021-12-16 09:26] VITALS: RESP 18; O2SAT 98
[2021-12-16] MEDS: Aspirin Enteric Coated 81 MG Tablet PO SCH (10:58)
[2021-12-16] MEDS: predniSONE 20 MG TABLET PO SCH (10:59)
[2021-12-16] MEDS: BuPROPion XL (24 HR) 150 MG TABLET PO SCH (11:00)
[2021-12-16] MEDS: Nystatin SUSP 5 ML UD.LIQ PO SCH ×2 (11:00→14:31)
[2021-12-16] MEDS: Sennosides/Docusate Sodium TABLET PO SCH (11:00)
[2021-12-16] MEDS: acetaZOLAMIDE 250 MG TABLET PO SCH (11:00)
[2021-12-16] MEDS: Nicotine 21 MG PATCH.TD24 TD SCH (14:31)
== END 2021-12-16 15:10 | disposition home or self-care (01) | DRG 139 ==
LOC: INPPIK 12:31 → EMEROOPIK 12:31 → INPPIK 14:37
PROVIDERS: ADMIT Family Medicine; ATTEND Family Medicine

== ENCOUNTER 2022-02-06 10:34 | Inpatient (IN) ==
[2022-02-06] MEDS ORDERED: methylPREDNISolone 125 MG/2 ML VIAL IVP ONE (11:05)
[2022-02-06] MEDS ORDERED: Ipratropium/Albuterol Neb 3 ML IH ONE (11:05)
[2022-02-06 11:21] LABS: Basophils # 0.1 K/mcL (0.0-0.2); Basophils % 0.3 %; Eosinophils % 0.1 %; Hematocrit 41.6 % (37.5-50.1); Hemoglobin 13.6 g/dL (12.9-16.9); Immature Granulocytes % 0.6 % (0-4); Lymphocytes # 1.1 K/mcL (0.6-4.6); Lymphocytes % 3.8 %; Mean Corpuscular HGB Conc 32.7 g/dL (31.6-35.5); Mean Corpuscular Hemoglobin 28.6 pg (28.0-33.3); Mean Corpuscular Volume 87.4 fL (83.0-100.0); Mean Platelet Volume 9.6 fL (9.4-12.4); Monocytes # 1.8 K/mcL (0.0-1.3); Monocytes % 6.4 %; Platelet Count 294 K/mcL (140-400); Red Blood Count 4.76 M/mcL (4.19-5.50); Segmented Neutrophils % 88.8 %
[2022-02-06 11:30] LABS: INR 1.4; Prothrombin Time 15.7 Seconds (9.4-12.1)
[2022-02-06 11:41] LABS: BUN/Creatinine Ratio 14 (6-26); Blood Urea Nitrogen 13 mg/dL (8-23); Carbon Dioxide 29 mEq/L (23-29); Chloride 98 mEq/L (98-107); Glucose 105 mg/dL (70-105); Osmolality,Calculated 278 (280-300); Potassium 4.1 mEq/L (3.5-5.1); Sodium 134 mEq/L (136-145); Troponin I < 0.03 ng/mL (< 0.04); eGFR For African Americans > 60 (> 60); eGFR For Non-African Americans > 60 (> 60)
[2022-02-06 11:47] LABS: Neutrophils # 24.9 K/mcL (1.6-8.9)
[2022-02-06 12:09] LABS: Platelet Estimate Normal (Normal)
[2022-02-06] MEDS ORDERED: Azithromycin 500 MG in 0.9 % Sodium Chloride 250 ML IVPB ONE (14:10)
[2022-02-06] MEDS: HydrOXYzine SYP 10 MG/5 ML UDC PO PRN (15:51)
[2022-02-06] MEDS: *HR* HYDROcodone/Acet 10/325 mg TABLET PO PRN ×2 (15:51→22:56)
[2022-02-06] MEDS: MethylPREDNISolone 40 MG/ML VIAL IVP SCH ×2 (17:02→23:44)
[2022-02-06] MEDS ORDERED: Naloxone 0.4 MG/ML INJ IVP PRN ×2 (18:21→18:22)
[2022-02-06] MEDS: cefTRIAXone 2,000 MG in 0.9 % Sodium Chloride Mini Bag 100 ML IVPB SCH (19:49)
[2022-02-06] MEDS: Baclofen 10 MG TABLET PO SCH (20:23)
[2022-02-06] MEDS: Budesonide/Formoterol 160/4.5 1 PUFF INH IH SCH (22:29)
[2022-02-06] MEDS: Ipratropium/Albuterol Neb 3 ML IH PRN (22:34)
[2022-02-07] MEDS: MethylPREDNISolone 40 MG/ML VIAL IVP SCH ×3 (05:13→17:36)
[2022-02-07] MEDS: Ipratropium/Albuterol Neb 3 ML IH PRN ×2 (05:30→20:12)
[2022-02-07] MEDS: *HR* HYDROcodone/Acet 10/325 mg TABLET PO PRN ×3 (06:50→20:03)
[2022-02-07 07:18] LABS: Basophils % 0.1 %; Hematocrit 39.6 % (37.5-50.1); Hemoglobin 12.7 g/dL (12.9-16.9); Lymphocytes % 2.9 %; Mean Corpuscular HGB Conc 32.1 g/dL (31.6-35.5); Mean Corpuscular Hemoglobin 28.3 pg (28.0-33.3); Mean Corpuscular Volume 88.4 fL (83.0-100.0); Mean Platelet Volume 9.9 fL (9.4-12.4); Monocytes # 0.4 K/mcL (0.0-1.3); Platelet Count 304 K/mcL (140-400); Red Blood Count 4.48 M/mcL (4.19-5.50); Red Cell Distribution Width 15.9 % (11.5-14.5); White Blood Count 22.1 K/mcL (4.3-11.1)
[2022-02-07 07:40] LABS: BUN/Creatinine Ratio 27 (6-26); Blood Urea Nitrogen 23 mg/dL (8-23); Calcium 9.4 mg/dL (8.6-10.3); Carbon Dioxide 28 mEq/L (23-29); Chloride 100 mEq/L (98-107); Glucose 177 mg/dL (70-105); Lymphocytes # 0.6 K/mcL (0.6-4.6); Neutrophils # 20.8 K/mcL (1.6-8.9); Osmolality,Calculated 288 (280-300); Potassium 4.7 mEq/L (3.5-5.1); Sodium 135 mEq/L (136-145); eGFR For African Americans > 60 (> 60); eGFR For Non-African Americans > 60 (> 60)
[2022-02-07] MEDS: Budesonide/Formoterol 160/4.5 1 PUFF INH IH SCH ×2 (08:37→21:39)
[2022-02-07] MEDS: Aspirin Enteric Coated 81 MG Tablet PO SCH (10:23)
[2022-02-07] MEDS: Baclofen 10 MG TABLET PO SCH ×2 (10:23→20:04)
[2022-02-07] MEDS: BuPROPion XL (24 HR) 150 MG TABLET PO SCH (10:23)
[2022-02-07] MEDS: Azithromycin 500 MG in 0.9 % Sodium Chloride 250 ML IVPB SCH (10:24)
[2022-02-07] MEDS: cefTRIAXone 2,000 MG in 0.9 % Sodium Chloride Mini Bag 100 ML IVPB SCH (18:37)
[2022-02-08] MEDS: MethylPREDNISolone 40 MG/ML VIAL IVP SCH ×4 (01:08→23:56)
[2022-02-08] MEDS: *HR* HYDROcodone/Acet 10/325 mg TABLET PO PRN ×3 (02:24→20:36)
[2022-02-08] MEDS: Ipratropium/Albuterol Neb 3 ML IH PRN (02:26)
[2022-02-08] MEDS: *HR* Enoxaparin 40 MG/0.4 ML SYRINGE SQ SCH (06:18)
[2022-02-08 07:38] LABS: Basophils % 0.2 %; Hematocrit 38.3 % (37.5-50.1); Hemoglobin 12.3 g/dL (12.9-16.9); Immature Granulocytes % 1.2 % (0-4); Lymphocytes # 0.7 K/mcL (0.6-4.6); Lymphocytes % 3.4 %; Mean Corpuscular HGB Conc 32.1 g/dL (31.6-35.5); Mean Corpuscular Hemoglobin 28.3 pg (28.0-33.3); Mean Platelet Volume 9.8 fL (9.4-12.4); Monocytes # 0.6 K/mcL (0.0-1.3); Monocytes % 3.1 %; Neutrophils # 18.3 K/mcL (1.6-8.9); Platelet Count 348 K/mcL (140-400); Red Blood Count 4.35 M/mcL (4.19-5.50); Red Cell Distribution Width 15.9 % (11.5-14.5); Segmented Neutrophils % 92.1 %; White Blood Count 19.9 K/mcL (4.3-11.1)
[2022-02-08 08:03] LABS: BUN/Creatinine Ratio 31 (6-26); Blood Urea Nitrogen 21 mg/dL (8-23); Calcium 8.9 mg/dL (8.6-10.3); Carbon Dioxide 29 mEq/L (23-29); Chloride 101 mEq/L (98-107); Glucose 154 mg/dL (70-105); Magnesium 1.9 mg/dL (1.6-2.6); Osmolality,Calculated 292 (280-300); Potassium 4.1 mEq/L (3.5-5.1); Sodium 138 mEq/L (136-145); eGFR For African Americans > 60 (> 60); eGFR For Non-African Americans > 60 (> 60)
[2022-02-08] MEDS: Budesonide/Formoterol 160/4.5 1 PUFF INH IH SCH ×2 (09:05→21:55)
[2022-02-08] MEDS: Ipratropium/Albuterol Neb 3 ML IH SCH ×3 (09:10→21:56)
[2022-02-08] MEDS: Azithromycin 500 MG in 0.9 % Sodium Chloride 250 ML IVPB SCH (10:08)
[2022-02-08] MEDS: Baclofen 10 MG TABLET PO SCH ×2 (10:08→20:36)
[2022-02-08] MEDS: BuPROPion XL (24 HR) 150 MG TABLET PO SCH (10:08)
[2022-02-08] MEDS: Aspirin Enteric Coated 81 MG Tablet PO SCH (10:08)
[2022-02-08] MEDS: HydrOXYzine SYP 10 MG/5 ML UDC PO PRN (10:19)
[2022-02-08] MEDS: cefTRIAXone 2,000 MG in 0.9 % Sodium Chloride Mini Bag 100 ML IVPB SCH (18:48)
[2022-02-08] MEDS: Melatonin 3 MG TABLET PO PRN (20:36)
[2022-02-08 22:32] LABS: Adenovirus Not Detected (Not Detect); Bordetella Pertussis Not Detected (Not Detect); Chlamydophila pneumoniae Not Detected (Not Detect); Coronavirus 229E Not Detected (Not Detect); Coronavirus HKU1 Not Detected (Not Detect); Coronavirus NL63 Not Detected (Not Detect); Coronavirus OC43 Not Detected (Not Detect); Human Metapneumovirus Not Detected (Not Detect); Human Rhinovirus/Enterovirus Not Detected (Not Detect); Influenza A Subtype 2009 H1 Not Detected (Not Detect); Influenza B Not Detected (Not Detect); Mycoplasma pneumoniae Not Detected (Not Detect); Parainfluenza Virus 1 Not Detected (Not Detect); Parainfluenza Virus 2 Not Detected (Not Detect); Parainfluenza Virus 3 Not Detected (Not Detect); Parainfluenza Virus 4 Not Detected (Not Detect); Respiratory Syncytial Virus Not Detected (Not Detect); SARS-CoV-2 Not Detected (Not Detect)
[2022-02-09] MEDS: Ipratropium/Albuterol Neb 3 ML IH SCH ×4 (04:17→21:54)
[2022-02-09] MEDS: *HR* Enoxaparin 40 MG/0.4 ML SYRINGE SQ SCH (05:18)
[2022-02-09] MEDS: *HR* HYDROcodone/Acet 10/325 mg TABLET PO PRN ×3 (05:18→22:05)
[2022-02-09 07:40] LABS: Basophils % 0.3 %; Hemoglobin 11.6 g/dL (12.9-16.9); Immature Granulocytes % 1.7 % (0-4); Lymphocytes # 0.9 K/mcL (0.6-4.6); Lymphocytes % 7.4 %; Mean Corpuscular HGB Conc 32.2 g/dL (31.6-35.5); Mean Corpuscular Hemoglobin 28.4 pg (28.0-33.3); Mean Platelet Volume 9.8 fL (9.4-12.4); Monocytes # 0.5 K/mcL (0.0-1.3); Monocytes % 3.9 %; Platelet Count 347 K/mcL (140-400); Red Blood Count 4.09 M/mcL (4.19-5.50); Red Cell Distribution Width 15.9 % (11.5-14.5); Segmented Neutrophils % 86.7 %; White Blood Count 12.7 K/mcL (4.3-11.1)
[2022-02-09 07:55] LABS: BUN/Creatinine Ratio 29 (6-26); Blood Urea Nitrogen 19 mg/dL (8-23); Calcium 8.8 mg/dL (8.6-10.3); Carbon Dioxide 31 mEq/L (23-29); Chloride 98 mEq/L (98-107); Glucose 104 mg/dL (70-105); Osmolality,Calculated 281 (280-300); Potassium 4.7 mEq/L (3.5-5.1); Sodium 134 mEq/L (136-145); eGFR For African Americans > 60 (> 60); eGFR For Non-African Americans > 60 (> 60)
[2022-02-09] MEDS: Budesonide/Formoterol 160/4.5 1 PUFF INH IH SCH ×2 (09:14→21:54)
[2022-02-09] MEDS: Baclofen 10 MG TABLET PO SCH ×2 (09:48→22:01)
[2022-02-09] MEDS: Aspirin Enteric Coated 81 MG Tablet PO SCH (09:48)
[2022-02-09] MEDS: BuPROPion XL (24 HR) 150 MG TABLET PO SCH (09:48)
[2022-02-09] MEDS: Azithromycin 500 MG in 0.9 % Sodium Chloride 250 ML IVPB SCH (09:49)
[2022-02-09] MEDS: MethylPREDNISolone 40 MG/ML VIAL IVP SCH ×2 (10:36→17:33)
[2022-02-09] MEDS: HydrOXYzine SYP 10 MG/5 ML UDC PO PRN ×2 (10:38→17:18)
[2022-02-09] MEDS: cefTRIAXone 2,000 MG in 0.9 % Sodium Chloride Mini Bag 100 ML IVPB SCH (18:12)
[2022-02-09] MEDS: Melatonin 3 MG TABLET PO PRN (22:01)
[2022-02-10] MEDS: MethylPREDNISolone 40 MG/ML VIAL IVP SCH ×3 (01:18→15:30)
[2022-02-10] MEDS: Ipratropium/Albuterol Neb 3 ML IH SCH ×4 (04:15→21:23)
[2022-02-10] MEDS: *HR* HYDROcodone/Acet 10/325 mg TABLET PO PRN ×2 (06:51→15:30)
[2022-02-10] MEDS: *HR* Enoxaparin 40 MG/0.4 ML SYRINGE SQ SCH (06:54)
[2022-02-10 07:22] LABS: Basophils # 0.1 K/mcL (0.0-0.2); Basophils % 0.7 %; Hematocrit 36.3 % (37.5-50.1); Hemoglobin 11.7 g/dL (12.9-16.9); Immature Granulocytes % 3.3 % (0-4); Lymphocytes # 1.2 K/mcL (0.6-4.6); Mean Corpuscular HGB Conc 32.2 g/dL (31.6-35.5); Mean Corpuscular Hemoglobin 28.1 pg (28.0-33.3); Mean Corpuscular Volume 87.1 fL (83.0-100.0); Monocytes # 0.4 K/mcL (0.0-1.3); Neutrophils # 8.5 K/mcL (1.6-8.9); Platelet Count 365 K/mcL (140-400); Red Blood Count 4.17 M/mcL (4.19-5.50); Red Cell Distribution Width 15.9 % (11.5-14.5); White Blood Count 10.5 K/mcL (4.3-11.1)
[2022-02-10 07:48] LABS: BUN/Creatinine Ratio 21 (6-26); Blood Urea Nitrogen 17 mg/dL (8-23); Calcium 8.5 mg/dL (8.6-10.3); Carbon Dioxide 32 mEq/L (23-29); Chloride 97 mEq/L (98-107); Glucose 116 mg/dL (70-105); Magnesium 2.2 mg/dL (1.6-2.6); Osmolality,Calculated 283 (280-300); Potassium 4.4 mEq/L (3.5-5.1); Sodium 135 mEq/L (136-145); eGFR For African Americans > 60 (> 60); eGFR For Non-African Americans > 60 (> 60)
[2022-02-10] MEDS: Budesonide/Formoterol 160/4.5 1 PUFF INH IH SCH ×2 (09:11→21:23)
[2022-02-10] MEDS: BuPROPion XL (24 HR) 150 MG TABLET PO SCH (09:26)
[2022-02-10] MEDS: Aspirin Enteric Coated 81 MG Tablet PO SCH (09:27)
[2022-02-10] MEDS: Azithromycin 500 MG in 0.9 % Sodium Chloride 250 ML IVPB SCH (09:27)
[2022-02-10] MEDS: Baclofen 10 MG TABLET PO SCH ×2 (09:27→20:45)
[2022-02-10] MEDS: cefTRIAXone 2,000 MG in 0.9 % Sodium Chloride Mini Bag 100 ML IVPB SCH (18:04)
[2022-02-11] MEDS: *HR* HYDROcodone/Acet 10/325 mg TABLET PO PRN ×3 (00:32→19:50)
[2022-02-11] MEDS: MethylPREDNISolone 40 MG/ML VIAL IVP SCH ×3 (00:33→17:11)
[2022-02-11] MEDS: Ipratropium/Albuterol Neb 3 ML IH SCH ×4 (04:26→21:17)
[2022-02-11] MEDS: *HR* Enoxaparin 40 MG/0.4 ML SYRINGE SQ SCH (04:51)
[2022-02-11] MEDS: Budesonide/Formoterol 160/4.5 1 PUFF INH IH SCH ×2 (09:33→21:18)
[2022-02-11] MEDS: BuPROPion XL (24 HR) 150 MG TABLET PO SCH (10:13)
[2022-02-11] MEDS: hydrOXYzine pamoate 25 MG CAPSULE PO PRN ×2 (10:13→17:11)
[2022-02-11] MEDS: Baclofen 10 MG TABLET PO SCH ×2 (10:13→19:50)
[2022-02-11] MEDS: Aspirin Enteric Coated 81 MG Tablet PO SCH (10:14)
[2022-02-12] MEDS: Ipratropium/Albuterol Neb 3 ML IH SCH ×3 (04:09→14:28)
[2022-02-12] MEDS: *HR* Enoxaparin 40 MG/0.4 ML SYRINGE SQ SCH (05:38)
[2022-02-12] MEDS: *HR* HYDROcodone/Acet 10/325 mg TABLET PO PRN ×2 (06:30→14:32)
[2022-02-12 06:57] VITALS: BP 115/81; PULSE 81; RESP 18; TEMP 97.9; O2SAT 95
[2022-02-12] MEDS ORDERED: predniSONE 20 MG TABLET PO SCH (09:00)
[2022-02-12] MEDS: BuPROPion XL (24 HR) 150 MG TABLET PO SCH (09:13)
[2022-02-12] MEDS: Baclofen 10 MG TABLET PO SCH (09:13)
[2022-02-12] MEDS: hydrOXYzine pamoate 25 MG CAPSULE PO PRN (09:13)
[2022-02-12] MEDS: Aspirin Enteric Coated 81 MG Tablet PO SCH (09:13)
[2022-02-12] MEDS: Budesonide/Formoterol 160/4.5 1 PUFF INH IH SCH (10:00)
== END 2022-02-12 14:56 | disposition home or self-care (01) | DRG 140 ==
LOC: EMEROOPIK 10:34 → INPPIK 10:34
PROVIDERS: ADMIT Internal Medicine; ATTEND Internal Medicine